=== PATIENT | male | born 2000 | race African-American/Black ===

== ENCOUNTER 2025-05-08 07:02 | Emergency (ER) | payer BC, SELFPAY ==
[2025-05-08 07:09] VITALS: BP 129/79
[2025-05-08 07:32] VITALS: BMI 19.3
--- NOTE | 2025-05-08 07:32 | ED.GENMED ---
History of Present Illness
General
Chief Complaint: Musculo-Skeletal Complaint
Source: patient
Exam Limitations: none
Time Seen by Provider: 05/08/25 07:28
History of Present Illness
History of Present Illness:
24yo [id number] male presenting for evaluation of bilateral hand pain. Patient reports that he became angry yesterday and punched a hard object. He has discomfort in both of his hands he woke up this morning and both of his hands are
swollen so he decided to come to the ED for evaluation. Pain is worse on the left hand. He denies any paresthesias. Last tetanus shot was reported to be in 2020.
Phy Exam
General Physical Exam
General Presentation: well appearing and no apparent distress
General Skin: warm and dry
General Habitus: normal
General Mental: alert
ENT Exam
ENT Exam: normocephalic
Pulmonary Exam
Pulmonary Exam: no respiratory distress
Neurological Exam
Neurological Exam: alert
[place] Coma Scale
Eye Opening: Spontaneous
Verbal Response: Oriented
Motor Response: Obeys Commands
GCS Total Score: 15
Musculoskeletal Exam
Musculoskeletal Exam: other (Swelling noted to dorsum of bilateral hands with diffuse tenderness. Abrasions present to L knuckles without bleeding. ROM intact. 2+ radial pulses bilaterally and sensation intact. )
Skin Exam
Skin Exam: normal color and warm/dry
Psychiatric Exam
Psychiatric Exam: normal mood/affect
Course
Orders/Labs/Results
Orders:
Orders
05/08/25 07:31
CR Hand - Left Min 3 Views Urgent
Comment:
Reason For Exam: injury after punching hard object
CR Hand - Right Min 3 Views Urgent
Comment:
Reason For Exam: injury after punching a hard object
05/08/25 08:19
Sharad Wrap Left-Treatment ONCE
Sharad Wrap Right-Treatment ONCE
Vital Signs
Initial and Last Documented VS:
Initial Vital Signs
Temp Pulse Resp BP Pulse Ox
98.1 F 94 18 129/79 98
05/08/25 07:09 05/08/25 07:09 05/08/25 07:09 05/08/25 07:09 05/08/25 07:09
Last Documented Vital Signs
Temp Pulse Resp BP Pulse Ox
98.1 F 94 18 129/79 98
05/08/25 07:09 05/08/25 07:09 05/08/25 07:09 05/08/25 07:09 05/08/25 07:33
MDM/Problems Addressed
Differential Diagnosis Includes:
24yoM here with bilateral hand pain after punching something yesterday. Swelling noted on exam without deformity. Upper extremities are neurovascularly intact. Differential diagnosis includes: sprain, fracture, contusion
X-rays obtained which are negative for fractures. Sharad wrap applied by nursing staff and supportive care discussed. He was advised to f/u with orthopedics if symptoms persist.
*Pulse Oximetry
SaO2: 98
Oxygen Mode of Delivery: Room air
Patient hypoxic: no
*Critical Care Note
Total Time (30-74mins, 75-104mins- exclusive of procedures): Not Applicable
ED Attending Note
-
Portions of this chart may have been created with voice recognition software.� Occasional wrong word or��sound alike� substitutions may have occurred due to the inherent limitations of voice recognition software.
Discharge Plan
Departure
Patient Disposition: Home (Routine Discharge)
Date of Disposition: 05/08/25
Time of Disposition: 08:20
Patient with high blood pressure during this ER visit?: No
Discharge Problem:
Injury of right hand, Injury of left hand
Instructions: Muscle and Bone Pain (DC)
Referrals:
Glen Wise MD [Active, Orthopedics]
Activity Restrictions/Additional Instructions:
Rest, ice, compress, and elevate your hands. Take Tylenol and ibuprofen for pain.
Please follow-up with orthopedics if symptoms persist.
Interventions
Interventions:
*Risk Screen - Suicide Last Done: 05/08/25 07:09
*General Assessment Last Done: 05/08/25 07:09
*Neglect/Abuse Screening Last Done: 05/08/25 07:09
*ED- Fall Risk Assessment Last Done: 05/08/25 07:32
*ED COVID-19 Vaccine History Last Done: 05/08/25 07:32
*ED Influenza Vaccine History Last Done: 05/08/25 07:32
*Nursing Disposition Last Done: 05/08/25 08:41
ED-Musculoskeletal Assessment Last Done: 05/08/25 07:32
Discharge Date and Time
Discharge Date/Time: 05/08/25 08:42
Print Language: TURKISH
== END 2025-05-08 08:42 | disposition home or self-care (01) ==
LOC: EMR 07:02
PROVIDERS: EMERGENCY PHYSICIAN Emergency Medicine
DX: S69.91XA Unspecified injury of right wrist, hand and finger(s), initial encounter (principal); S69.92XA Unspecified injury of left wrist, hand and finger(s), initial encounter; S60.512A Abrasion of left hand, initial encounter; M79.89 Other specified soft tissue disorders; X83.8XXA Intentional self-harm by other specified means, initial encounter
CPT/HCPCS: 99283; 73130